=== PATIENT | female | born 1975 | race Caucasian/White ===

== ENCOUNTER 2019-10-25 11:00 | Inpatient (IN) | payer OTHER ==
[~2019-10-25] VITALS: Ht 170.2 cm; Wt 88.9 kg
[2019-10-25] MEDS ORDERED: OXYTOCIN 30 UNITS/LACT RINGERS 500 ML IV ONE ×2 (11:31→23:40)
[2019-10-25] MEDS ORDERED: RINGERS SOLUTION,LACTATED 1,000 ML IV PRN (11:31)
[2019-10-25] MEDS ORDERED: PNV1TABL54 PO (11:34)
[2019-10-25 11:39] VITALS: BP 117/60
[2019-10-25] MEDS ORDERED: METOCLOPRAMIDE HCL 5 MG/ML 2 ML VIAL IVP PRN (11:45)
[2019-10-25] MEDS ORDERED: FentaNYL CITRATE-PF 100 MCG/2 ML VIAL IVP PRN (11:45)
[2019-10-25] MEDS ORDERED: METHYLERGONOVINE MALEATE 0.2 MG/ML VIAL IM PRN (11:45)
[2019-10-25] MEDS ORDERED: CITRIC ACID/SODIUM CITRATE 30 ML SOLUTION UDCUP PO PRN (11:45)
[2019-10-25 12:26] LABS: BASOPHILS % (AUTO) 0.2 % (0.0-2.0); EOSINOPHILS % (AUTO) 0.6 % (1.0-6.0); HEMATOCRIT 36.3 % (36-46); HEMOGLOBIN 11.8 g/dL (12.0-16.0); LYMPHOCYTES # (AUTO) 1.1 K/uL (1.0-4.8); LYMPHOCYTES % (AUTO) 7.7 % (22.0-44.0); MEAN CORPUSCULAR HEMOGLOBIN 26.1 pg (26.0-34.0); MEAN CORPUSCULAR HGB CONC 32.6 G/dL (31.0-37.0); MEAN CORPUSCULAR VOLUME 80 fL (80-100); MONOCYTES # (AUTO) 0.6 K/uL (0.1-1.0); MONOCYTES % (AUTO) 4.7 % (2.0-9.0); PLATELET COUNT (AUTO)-OB 279 K/uL (150-450); RED BLOOD CELL COUNT(AUTO) 4.53 MIL/uL (4.00-5.20); RED CELL DISTRIBUTION WIDTH 15.5 % (11.5-14.5)
[2019-10-25 12:29] LABS: NEUTROPHILS % (AUTO) 86.8 % (40.0-70.0)
[2019-10-25] MEDS ORDERED: DINOPROSTONE 10 MG VAGINAL SUPPOSITORY VG ONE (12:30)
[2019-10-25] MEDS: RINGERS SOLUTION,LACTATED 1,000 ML IV SCH ×2 (13:02→18:58)
[2019-10-25] MEDS ORDERED: OXYGEN THERAPY IH SCH (20:00)
[2019-10-26] MEDS ORDERED: -PHARMACY NOTE- MISC ONE (00:30)
[2019-10-26] MEDS: RINGERS SOLUTION,LACTATED 1,000 ML IV SCH ×4 (03:35→23:33)
[2019-10-26] MEDS ORDERED: DiphenhydrAMINE HCL 50 MG/ML VIAL IVP PRN (13:15)
[2019-10-26] MEDS ORDERED: ROPIVACAINE HCL/PF 0.2% 100 ML ED PRN (13:15)
[2019-10-26] MEDS ORDERED: ONDANSETRON HCL 4 MG/2 ML VIAL IVP PRN (13:15)
[2019-10-26] MEDS ORDERED: ROPIVACAINE HCL/PF 0.2% 100 ML ED ONE (13:25)
[2019-10-26] MEDS ORDERED: AMPICILLIN SODIUM 2 GM/NS 100 ML IV ONE (21:30)
[2019-10-27] MEDS ORDERED: OXYTOCIN 30 UNITS/LACT RINGERS 500 ML IV ONE ×2 (00:42→07:56)
[2019-10-27] MEDS: AMPICILLIN SODIUM 1 GM/NS 50 ML IV SCH ×3 (01:51→15:57)
[2019-10-27] MEDS ORDERED: CeFAZolin 2 GM/DEXTROSE 50 ML IV ONE ×2 (06:57→07:15)
[2019-10-27] MEDS ORDERED: OXYTOCIN 20 UNITS/LACT RINGERS 1,000 ML IV ONE ×2 (07:15→07:30)
[2019-10-27] MEDS ORDERED: MISOPROSTOL 100 MCG TABLET ONE (07:23)
[2019-10-27] MEDS ORDERED: MISOPROSTOL 100 MCG TABLET PR ONE (07:30)
[2019-10-27] MEDS ORDERED: BENZOCAINE 20%/MENTHOL 56 GM SPRAY CANISTER TP PRN (08:00)
[2019-10-27] MEDS ORDERED: LANOLIN 7 GM OINTMENT TP PRN (08:00)
[2019-10-27] MEDS ORDERED: GLYCERIN/WITCH HAZEL LEAF 40 PADS JAR TP PRN (08:00)
[2019-10-27] MEDS ORDERED: OxyCODONE HCL/ACETAMINOPHEN 5-325 MG TABLET PO PRN ×2 (08:00)
[2019-10-27] MEDS ORDERED: LIDOCAINE/PF 1% 30 ML VIAL INJ PRN (08:00)
[2019-10-27 08:35] LABS: HEMATOCRIT 28.3 % (36-46); HEMOGLOBIN 9.5 g/dL (12.0-16.0); MEAN CORPUSCULAR HGB CONC 33.4 G/dL (31.0-37.0); MEAN CORPUSCULAR VOLUME 81 fL (80-100); PLATELET COUNT (AUTO)-OB 263 K/uL (150-450); RED CELL DISTRIBUTION WIDTH 15.7 % (11.5-14.5)
[2019-10-27 09:51] LABS: BAND NEUTROPHILS % (MANUAL) 3 % (0-5); LYMPHOCYTES % (MANUAL) 2 % (22-44); MONOCYTES % (MANUAL) 6 % (2-9); SEGMENTED NEUTROPHILS % 89 % (40-70)
[2019-10-27] MEDS: IBUPROFEN 800 MG TABLET PO PRN ×2 (09:55→23:36)
[2019-10-27 11:40] LABS: BASOPHILS % (AUTO) 0.2 % (0.0-2.0); EOSINOPHILS % (AUTO) 0 % (1.0-6.0); HEMATOCRIT 22.9 % (36-46); HEMOGLOBIN 7.5 g/dL (12.0-16.0); LYMPHOCYTES # (AUTO) 0.5 K/uL (1.0-4.8); MEAN CORPUSCULAR HEMOGLOBIN 26.5 pg (26.0-34.0); MEAN CORPUSCULAR VOLUME 80 fL (80-100); MONOCYTES # (AUTO) 0.9 K/uL (0.1-1.0); MONOCYTES % (AUTO) 3.3 % (2.0-9.0); NEUTROPHILS # (AUTO) 24.6 K/uL (1.8-7.7); PLATELET COUNT (AUTO)-OB 219 K/uL (150-450); RED BLOOD CELL COUNT(AUTO) 2.85 MIL/uL (4.00-5.20); RED CELL DISTRIBUTION WIDTH 15.6 % (11.5-14.5)
[2019-10-27 11:41] LABS: NEUTROPHILS % (AUTO) 94.5 % (40.0-70.0)
[2019-10-27 14:20] LABS: GLUCOMETER DEV NAME(LOC) 4S.; GLUCOSE,POINT OF CARE 183 MG/DL (70-110)
[2019-10-27] MEDS: MAGNESIUM HYDROXIDE SUSPENSION 30 ML UDCUP PO PRN (23:35)
[2019-10-28 07:30] LABS: BASOPHILS % (AUTO) 0.2 % (0.0-2.0); EOSINOPHILS % (AUTO) 0.8 % (1.0-6.0); LYMPHOCYTES # (AUTO) 1.6 K/uL (1.0-4.8); LYMPHOCYTES % (AUTO) 8.5 % (22.0-44.0); MEAN CORPUSCULAR HEMOGLOBIN 26.4 pg (26.0-34.0); MEAN CORPUSCULAR HGB CONC 32.7 G/dL (31.0-37.0); MEAN CORPUSCULAR VOLUME 81 fL (80-100); MONOCYTES # (AUTO) 1.3 K/uL (0.1-1.0); MONOCYTES % (AUTO) 6.8 % (2.0-9.0); NEUTROPHILS # (AUTO) 15.9 K/uL (1.8-7.7); NEUTROPHILS % (AUTO) 83.7 % (40.0-70.0); PLATELET COUNT (AUTO)-OB 222 K/uL (150-450); RED BLOOD CELL COUNT(AUTO) 2.49 MIL/uL (4.00-5.20); RED CELL DISTRIBUTION WIDTH 15.6 % (11.5-14.5)
[2019-10-28 07:34] LABS: HEMOGLOBIN 6.6 g/dL (12.0-16.0)
[2019-10-28 07:35] LABS: HEMATOCRIT 20.1 % (36-46)
[2019-10-28] MEDS ORDERED: IRON SUCROSE COMPLEX 100 MG in SODIUM CHLORIDE 0.9% 100 ML IV ONE (08:00)
[2019-10-28] MEDS ORDERED: SODIUM CHLORIDE 0.9% 100 ML ONE (08:18)
[2019-10-28] MEDS: MAGNESIUM HYDROXIDE SUSPENSION 30 ML UDCUP PO PRN (08:54)
[2019-10-28] MEDS ORDERED: ACET-784 PO (10:36)
[2019-10-28] MEDS ORDERED: IBUP-2070 PO (10:37)
[2019-10-28] MEDS ORDERED: DOCU-275 PO (10:38)
[2019-10-28] MEDS ORDERED: FERR-89 PO (10:38)
== END 2019-10-28 13:55 | disposition home or self-care (01) | DRG 806 ==
LOC: OBSVTOIN 11:00 → 4S 11:00
PROVIDERS: ADMIT Obstetrics & Gynecology Obstetrics; ATTEND Obstetrics & Gynecology Obstetrics
PROC: 10D07Z3 Extraction of Products of Conception, Low Forceps, Via Natural or Artificial Opening (ICD-10-PCS; principal; 2019-10-27)
PROC: 0W8NXZZ Division of Female Perineum, External Approach (ICD-10-PCS; 2019-10-27)
PROC: 3E0R3BZ Introduction of Anesthetic Agent into Spinal Canal, Percutaneous Approach (ICD-10-PCS; 2019-10-27)
PROC: 00HU33Z Insertion of Infusion Device into Spinal Canal, Percutaneous Approach (ICD-10-PCS; 2019-10-27)
PROC: 3E0P7VZ Introduction of Hormone into Female Reproductive, Via Natural or Artificial Opening (ICD-10-PCS; 2019-10-27)
DX: O69.81X0 Labor and delivery complicated by cord around neck, without compression, not applicable or unspecified (principal); O72.1 Other immediate postpartum hemorrhage; O70.20 Third degree perineal laceration during delivery, unspecified; O77.0 Labor and delivery complicated by meconium in amniotic fluid; O75.81 Maternal exhaustion complicating labor and delivery; Z37.0 Single live birth
CPT/HCPCS: 86850; 86900; 86901; J0290; J0690; J1756; J2590; J2795; J7050; J7120